=== PATIENT | female | born 1960 | race American Indian/Alaskan Native ===

== ENCOUNTER 2016-09-17 16:31 | Emergency (ER) | payer OTHER ==
[2016-09-17 16:54] VITALS: BP 155/87
--- NOTE | 2016-09-17 17:25 | Emergency Department Report ---
ED General Adult HPI - General Chief complaint: Recheck/Abnormal Lab/Rx Stated complaint: BP MED REFILL Time Seen by Provider: 09/17/16 17:21 Source: patient Mode of arrival: Ambulatory Limitations: No Limitations - History of Present Illness Initial comments: PT states she took her bp medication yesterday at 0800. PT states she thought she had another refill on her bp medication. PT states she has been on her bp medication x 1 year and she appointment in [address] Jillian Rhodes MD Complaint: medication refill Severity scale (0 -10): 0 Associated Symptoms: denies: chest pain, fever/chills, headaches, loss of appetite, malaise, nausea/vomiting, shortness of breath, syncope Treatments Prior to Arrival: none - Related Data Previous Rx's Medication Instructions Recorded Last Taken Type Valsartan/Hydrochlorothiazide 1 tab PO DAILY #30 tablet 09/17/16 Unknown Rx [Valsartan-Hctz 160-25 mg Tab] Allergies Allergy/AdvReac Type Severity Reaction Status Date / Time lisinopril Allergy Angioedema Verified 09/17/16 16:54 ED Review of Systems ROS: Stated complaint: BP MED REFILL Other details as noted in HPI Comment: All other systems reviewed and negative Constitutional: denies: chills, fever Respiratory: denies: shortness of breath, SOB with exertion, SOB at rest Cardiovascular: denies: chest pain, palpitations, syncope Gastrointestinal: denies: abdominal pain ED Past Medical Hx - Past Medical History Previous Medical History?: Yes Hx Hypertension: Yes - Surgical History Past Surgical History?: No - Social History Smoking Status: Never Smoker Substance Use Type: None - Medications Home Medications: Home Medications Medication Instructions Recorded Confirmed Last Taken Type Valsartan/Hydrochlorothiazide 1 tab PO DAILY #30 tablet 09/17/16 Unknown Rx [Valsartan-Hctz 160-25 mg Tab] ED Physical Exam - General Limitations: No Limitations General appearance: alert, in no apparent distress - Head Head exam: Present: atraumatic, normocephalic, normal inspection - Eye Eye exam: Present: normal appearance, PERRL, EOMI. Absent: conjunctival injection - ENT ENT exam: Present: normal exam, mucous membranes moist, normal external ear exam - Neck Neck exam: Present: normal inspection, full ROM - Respiratory Respiratory exam: Present: normal lung sounds bilaterally. Absent: respiratory distress, chest wall tenderness - Cardiovascular Cardiovascular Exam: Present: bradycardia, normal heart sounds - Extremities Exam Extremities exam: Present: normal inspection, full ROM - Back Exam Back exam: Present: normal inspection, full ROM. Absent: tenderness, CVA tenderness (R), CVA tenderness (L) - Neurological Exam Neurological exam: Present: alert, oriented X3, normal gait - Psychiatric Psychiatric exam: Present: normal affect, normal mood - Skin Skin exam: Present: warm, dry, intact, normal color ED Course Vital Signs 09/17/16 16:50 Temperature 98.1 F Pulse Rate 56 L Respiratory 16 Rate Blood Pressure 155/87 O2 Sat by Pulse 100 Oximetry - Reevaluation(s) Reevaluation #1: 09/17/16 17:26 PT states she has a hx of a low heart rate. PT has not had her atenolol today and her hr is currently 56. Will hold atenolol at this time. PT aware of plan of care. PT has no questions at this time. - Pulse Oximetry Interpretation Digit-Finger Initial Pulse Oximetry Readin Actions Taken: none ED Medical Decision Making - Differential Diagnosis medication refill Critical Care Time: No Critical care attestation.: If time is entered above; I have spent that time in minutes in the direct care of this critically ill patient, excluding procedure time. ED Disposition Clinical Impression: Hypertension Qualifiers: Hypertension type: essential hypertension Qualified Code(s): I10 - Essential ( primary) hypertension Disposition: -01 TO HOME OR SELFCARE Is pt being admited?: No Does the pt Need Aspirin: No Condition: Stable Instructions: Hypertension (ED) Additional Instructions: Recheck bp in 3-5 days Keep your follow up appointment that you have scheduled Return to the ED if you bp remains elevated, or if you develop headaches, chest pains, or have concerns. Prescriptions: Valsartan/Hydrochlorothiazide [Valsartan-Hctz 160-25 mg Tab] 1 tab PO DAILY #30 tablet Referrals: SAVANNAH CHANDLER MD [Staff Physician] - 3-5 Days Time of Disposition: 17:29
== END 2016-09-17 17:44 | disposition home or self-care (01) ==
LOC: ED 16:31
DX: I10 Essential (primary) hypertension (principal); Z88.8 Allergy status to other drugs, medicaments and biological substances
CPT/HCPCS: 99282

== ENCOUNTER 2017-02-13 16:59 | Emergency (ER) | payer OTHER ==
[2017-02-13 17:32] VITALS: BP 150/72
== END 2017-02-13 23:00 | disposition left against medical advice (07) ==
LOC: ED 16:59
DX: K04.7 Periapical abscess without sinus (principal); Z53.21 Procedure and treatment not carried out due to patient leaving prior to being seen by health care provider